=== PATIENT | female | born 1985 | race Caucasian/White ===

== ENCOUNTER 2024-11-30 19:09 | Inpatient (IN) | payer SELFPAY ==
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
[2024-11-30 21:44] VITALS: BMI 40.0
[2024-11-30 21:52] VITALS: BP 133/90; PULSE 94; RESP 18; TEMP 37.1; O2SAT 98
[2024-11-30 23:46] VITALS: BP 133/90
[2024-11-30 23:47] VITALS: BP 133/90; PULSE 94
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
[2024-12-01 07:56] LABS: Hemoglobin A1C 119.9524 umol/L; Total Hemoglobin (HGBA1C) 3768.0380 umol/L
[2024-12-01 08:00] VITALS: BP 104/62; PULSE 78; RESP 16; TEMP 36.8; O2SAT 97
[2024-12-01 08:04] LABS: Alanine Aminotransferase 27 U/L (0-31); Albumin Level 4.2 g/dL (3.5-5.0); Alkaline Phosphatase 64 U/L (39-117); Anion Gap 12 (12-20); Aspartate Amino Transferase 26 U/L (5-31); Blood Urea Nitrogen 15 mg/dL (9-16); Calcium 9.4 mg/dL (8.4-10.2); Carbon Dioxide 26 mmol/L (22-29); Chloride 107 mmol/L (96-108); Cholesterol 212 mg/dL (<200); Creatinine Clr Calc Pharmacy 88.2; Estimated Glomerular Filt Rate > 60; HDL Cholesterol 49 mg/dL (>40); Potassium 4.4 mmol/L (3.3-5.1); Sodium 141 mmol/L (135-145); Total Protein 7.3 g/dL (6.5-8.0); Triglycerides 153 mg/dL (<150)
[2024-12-01 08:13] LABS: Free T4 (Free Thyroxine) 0.94 ng/dL (0.71-1.85); Thyroid Stimulating Hormone 1.48 uIU/mL (0.32-4.0)
[2024-12-01 08:20] LABS: Vitamin B12 644 pg/mL (200-900)
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
[2024-12-01 08:31] VITALS: BP 104/62; PULSE 78
[2024-12-01] MEDS: buPROPion HCl XL 300 MG TAB.ER.24H PO (08:32)
--- NOTE | 2024-12-01 20:24 | PC.NURSE ---
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 Dr Jorgito vasquez, orders given, awaiting med.
[2024-12-01 21:52] VITALS: BP 110/70
[2024-12-01 21:53] VITALS: BP 110/70; PULSE 88
[2024-12-01 22:00] VITALS: BP 110/70; PULSE 88; RESP 18; TEMP 36.7; O2SAT 96
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
[2024-12-02 08:30] VITALS: BP 104/67; PULSE 84; RESP 18; TEMP 36.8; O2SAT 98
[2024-12-02] MEDS: buPROPion HCl XL 300 MG TAB.ER.24H PO (08:36)
[2024-12-02 20:00] VITALS: BP 105/62; PULSE 90; TEMP 37.2; O2SAT 98
[2024-12-02 22:16] VITALS: BP 105/62
[2024-12-02 22:19] VITALS: BP 105/62; PULSE 90
[2024-12-03 08:00] VITALS: BP 119/63; PULSE 74; RESP 18; TEMP 36.9; O2SAT 98
[2024-12-03] MEDS: buPROPion HCl XL 300 MG TAB.ER.24H PO (08:28)
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
[2024-12-03 20:00] VITALS: BP 128/66; PULSE 86; RESP 16; TEMP 37.1; O2SAT 97
[2024-12-03 21:34] VITALS: BP 128/68
[2024-12-03 21:35] VITALS: BP 128/66; PULSE 86
[2024-12-04 08:00] VITALS: BP 105/62; PULSE 68; TEMP 36.7; O2SAT 97
[2024-12-04] MEDS: buPROPion HCl XL 300 MG TAB.ER.24H PO (08:24)
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
== END 2024-12-04 15:12 | disposition home or self-care (01) | DRG 885 ==
PROVIDERS: Nurse Practitioner Psychiatric/Mental Health; Admitting Provider Psychiatry & Neurology Psychiatry; Visit Provider Psychiatry & Neurology Psychiatry
DX: F33.1 Major depressive disorder, recurrent, moderate (principal); Z68.41 Body mass index [BMI] 40.0-44.9, adult; F41.9 Anxiety disorder, unspecified; F90.9 Attention-deficit hyperactivity disorder, unspecified type; F43.25 Adjustment disorder with mixed disturbance of emotions and conduct; T43.211A Poisoning by selective serotonin and norepinephrine reuptake inhibitors, accidental (unintentional), initial encounter; E66.01 Morbid (severe) obesity due to excess calories; Z71.3 Dietary counseling and surveillance; N80.9 Endometriosis, unspecified; Z79.899 Other long term (current) drug therapy
CPT/HCPCS: 36415; 80053; 80061; 82607; 83036; 84439; 84443

== ENCOUNTER → 2024-11-30 19:09 | Outpatient (BNV) | payer OTHER, SELFPAY | PROVIDERS: Admitting Provider Psychiatry & Neurology Psychiatry; Visit Provider Psychiatry & Neurology Psychiatry | DX: F33.1 Major depressive disorder, recurrent, moderate (principal); F41.9 Anxiety disorder, unspecified; F43.11 Post-traumatic stress disorder, acute | CPT/HCPCS: 99231; 99232; 99499 ==

== ENCOUNTER → 2024-11-30 19:09 | Outpatient (BNV) | payer MEDICAID, SELFPAY | PROVIDERS: Admitting Provider Psychiatry & Neurology Psychiatry; Visit Provider Physician Assistant | DX: Z00.8 Encounter for other general examination (principal); E66.01 Morbid (severe) obesity due to excess calories | CPT/HCPCS: 99222 ==